=== PATIENT | male | born 1945 | race Caucasian/White ===

== ENCOUNTER 2019-02-09 05:54 | Emergency (ER) | payer OTHER ==
[~2019-02-09] VITALS: Ht 172.7 cm; Wt 83.9 kg
[~2019-02-09 05:54] MED LIST: ESZO1TAB9; TRAM-297
[2019-02-09 06:43] VITALS: BP 132/80
[2019-02-09 07:33] LABS: Basophils # (auto) 0 uL; Basophils % (auto) 0.6 % (0.0-2.0); Eosinophils # (auto) 0.1 uL; Eosinophils % (auto) 1.8 % (0.0-7.0); Hematocrit 43.8 % (41.0-53.0); Hemoglobin 14.6 g/dL (13.5-17.5); Lymphocytes # (auto) 1.8 uL; Lymphocytes % (auto) 33.7 % (10.0-50.0); Mean Corpuscular Hemoglobin 31.8 pg (28.0-32.0); Mean Corpuscular Hgb Conc. 33.4 g/dL (32.0-36.0); Mean Corpuscular Volume 95.3 fL (80.0-100.0); Monocytes # (auto) 0.6 uL; Monocytes % (auto) 11.6 % (0.0-12.0); Neutrophils # (auto) 2.8 uL; Neutrophils % (auto) 52.3 % (37.0-80.0); Platelet Count (auto) 231 10^3/uL (140-450); Red Cell Distribution Width 14.3 % (11.8-14.3); White Blood Cell 5.4 10^3/uL (4.4-10.8)
[2019-02-09 08:03] LABS: Alanine Aminotransferase 31 U/L (16-61); Anion Gap 6 (5-15); Aspartate Aminotransferase 23 U/L (15-37); BUN/Creatinine Ratio 18.8; Blood Urea Nitrogen 15 mg/dL (7-18); Calcium 8.6 mg/dL (8.5-10.1); Carbon Dioxide 27 mmol/L (21-32); Chloride 108 mmol/L (98-107); GFR African American 122 mL/min; GFR Non-African American 101 mL/min; Glucose 105 mg/dL (74-106); Potassium 4.5 mmol/L (3.5-5.1); Sodium 141 mmol/L (136-145)
[2019-02-09 08:07] LABS: Alkaline Phosphatase 75 U/L (45-117); Bilirubin, Total 0.9 mg/dL (0.2-1.0); Total Protein 7.4 g/dL (6.4-8.2)
== END 2019-02-09 09:00 | disposition left against medical advice (07) ==
LOC: ER 05:54
DX: M54.2 Cervicalgia (principal); R20.0 Anesthesia of skin; M79.622 Pain in left upper arm; Z53.21 Procedure and treatment not carried out due to patient leaving prior to being seen by health care provider
CPT/HCPCS: 36415; 71046; 80053; 83880; 84484; 85025; 93005

== ENCOUNTER 2019-04-18 08:25 | Emergency (ER) | payer OTHER ==
[~2019-04-18] VITALS: Ht 170.2 cm; Wt 71.7 kg
[2019-04-18 08:38] VITALS: BP 130/69
[2019-04-18] MEDS ORDERED: KETOROLAC TROMETH 60MG/2ML VIAL IM ONE (09:30)
[2019-04-18] MEDS ORDERED: traMADol HCL 50 MG TAB PO ONE (09:30)
== END 2019-04-18 09:55 | disposition home or self-care (01) ==
LOC: ER 08:29
DX: M48.02 Spinal stenosis, cervical region (principal); M54.12 Radiculopathy, cervical region; J44.9 Chronic obstructive pulmonary disease, unspecified; I25.2 Old myocardial infarction; F17.210 Nicotine dependence, cigarettes, uncomplicated; Z87.442 Personal history of urinary calculi; Z88.6 Allergy status to analgesic agent; Z88.8 Allergy status to other drugs, medicaments and biological substances
CPT/HCPCS: 72125; 99284; J1885

== ENCOUNTER 2019-08-02 19:15 | Emergency (ER) | payer OTHER ==
[~2019-08-02] VITALS: Ht 175.3 cm; Wt 77.1 kg
[2019-08-02 20:54] VITALS: BP 124/76
[2019-08-02] MEDS ORDERED: LIDOCAINE W/ EPINEPHRINE 2% INJ 20ML VIAL IJ ONE (21:00)
== END 2019-08-02 21:27 | disposition home or self-care (01) ==
LOC: ER 19:27
DX: S61.211A Laceration without foreign body of left index finger without damage to nail, initial encounter (principal); J44.9 Chronic obstructive pulmonary disease, unspecified; I25.2 Old myocardial infarction; Z87.442 Personal history of urinary calculi; W26.8XXA Contact with other sharp object(s), not elsewhere classified, initial encounter; Y93.89 Activity, other specified; Y92.89 Other specified places as the place of occurrence of the external cause; Y99.8 Other external cause status
CPT/HCPCS: 12001

== ENCOUNTER 2019-08-06 18:24 | Emergency (ER) | payer OTHER ==
[~2019-08-06] VITALS: Ht 170.2 cm; Wt 74.8 kg
[2019-08-06 21:30] VITALS: BP 134/79
== END 2019-08-06 22:30 | disposition home or self-care (01) ==
LOC: ER 18:24
DX: S93.402A Sprain of unspecified ligament of left ankle, initial encounter (principal); J44.9 Chronic obstructive pulmonary disease, unspecified; I25.2 Old myocardial infarction; F17.210 Nicotine dependence, cigarettes, uncomplicated; Z88.5 Allergy status to narcotic agent; Z79.899 Other long term (current) drug therapy; Z87.442 Personal history of urinary calculi; W20.8XXA Other cause of strike by thrown, projected or falling object, initial encounter; Y93.89 Activity, other specified; Y99.0 Civilian activity done for income or pay; Y92.89 Other specified places as the place of occurrence of the external cause
CPT/HCPCS: 73610

== ENCOUNTER 2020-02-23 05:36 | Emergency (ER) | payer OTHER ==
[~2020-02-23] VITALS: Ht 172.7 cm; Wt 77.1 kg
[2020-02-23 06:08] VITALS: BP 131/81
[2020-02-23] MEDS ORDERED: HYDROcodone-ACET 10/325MG TAB PO ONE (06:45)
[2020-02-23] MEDS ORDERED: KETOROLAC TROMETH 60MG/2ML VIAL IM ONE (06:45)
== END 2020-02-23 07:40 | disposition home or self-care (01) ==
LOC: ER 05:36
DX: S33.5XXA Sprain of ligaments of lumbar spine, initial encounter (principal); J44.9 Chronic obstructive pulmonary disease, unspecified; I25.2 Old myocardial infarction; Z87.442 Personal history of urinary calculi; X58.XXXA Exposure to other specified factors, initial encounter; Y93.89 Activity, other specified; Y92.89 Other specified places as the place of occurrence of the external cause; Y99.8 Other external cause status
CPT/HCPCS: 72131; 93005; 99284; J1885

== ENCOUNTER 2023-10-06 15:34 | Emergency (ER) | payer OTHER, MEDICAID ==
[~2023-10-06] VITALS: Ht 167.6 cm; Wt 68.9 kg
[2023-10-06 16:01] VITALS: BP 118/80; PULSE 76; RESP 18; O2SAT 97
[2023-10-06] MEDS ORDERED: KETOROLAC TROMETH 30 MG/ML 1ML VIAL IM ONE (17:00)
[2023-10-06] MEDS ORDERED: ONDANSETRON HCL 4 MG/2 ML VIAL IM ONE (17:00)
[2023-10-06 18:24] LABS: Basophils # (auto) 0 10 ^3/uL (0-0.2); Basophils % (auto) 0.1 % (0.0-2.0); Eosinophils # (auto) 0 10 ^3/uL (0-0.8); Eosinophils % (auto) 0.3 % (0.0-7.0); Hematocrit 43.4 % (41.0-53.0); Lymphocytes % (auto) 12.8 % (10.0-50.0); Mean Corpuscular Hemoglobin 29.7 pg (28.0-32.0); Mean Corpuscular Hgb Conc. 32.1 g/dL (32.0-36.0); Mean Corpuscular Volume 92.4 fL (80.0-100.0); Monocytes # (auto) 1.1 10 ^3/uL (0-1.3); Monocytes % (auto) 6.9 % (0.0-12.0); Neutrophils # (auto) 12.4 10 ^3/uL (1.6-8.6); Neutrophils % (auto) 79.9 % (37.0-80.0); Nucleated Red Blood Cells % 0.1 %; Red Cell Distribution Width 14.6 % (11.8-14.3); White Blood Cell 15.5 10^3/uL (4.4-10.8)
[2023-10-06 18:39] LABS: Alanine Aminotransferase 17 U/L (7-40); Albumin 3.9 g/dL (3.2-4.8); Alkaline Phosphatase 65 U/L (46-116); Anion Gap 8 (5-15); Aspartate Aminotransferase 18 U/L (13-40); BUN/Creatinine Ratio 27.7 (10.0-20.0); Bilirubin, Total 0.6 mg/dL (0.2-1.0); Blood Urea Nitrogen 18 mg/dL (9-23); Calcium 8.6 mg/dL (8.7-10.4); Carbon Dioxide 25 mmol/L (20-30); Chloride 107 mmol/L (98-107); Glucose 89 mg/dL (74-106); Magnesium 2.1 mg/dL (1.6-2.6); Potassium 4.5 mmol/L (3.5-5.1); Sodium 140 mmol/L (136-145); Total Protein 6.1 g/dL (5.7-8.2)
== END 2023-10-06 20:39 | disposition left against medical advice (07) ==
LOC: ER 15:34
DX: K56.609 Unspecified intestinal obstruction, unspecified as to partial versus complete obstruction (principal); F17.210 Nicotine dependence, cigarettes, uncomplicated; J44.9 Chronic obstructive pulmonary disease, unspecified; I25.2 Old myocardial infarction; Z87.442 Personal history of urinary calculi; Z90.49 Acquired absence of other specified parts of digestive tract; Z91.013 Allergy to seafood; Z88.6 Allergy status to analgesic agent; Z79.899 Other long term (current) drug therapy
CPT/HCPCS: 36415; 74176; 80053; 83690; 83735; 84484; 85025; 93005